=== PATIENT | female | born 1960 | race Caucasian/White ===

== ENCOUNTER 2016-12-01 12:00 | Outpatient (RCR) | payer OTHER | END 2016-12-03 | disposition home or self-care (01) | LOC: M PT 12:00 | PROVIDERS: ATTEND Neurological Surgery | DX: Z51.89 Encounter for other specified aftercare (principal); D33.1 Benign neoplasm of brain, infratentorial ==

== ENCOUNTER 2017-02-01 09:15 | Outpatient (RCR) | payer OTHER | END 2017-02-02 | LOC: M PT 09:15 | PROVIDERS: ATTEND Neurological Surgery | DX: D33.1 Benign neoplasm of brain, infratentorial (principal) ==

== ENCOUNTER 2017-02-06 10:01 | Outpatient (RCR) | payer OTHER | END 2017-03-05 | LOC: M PT 10:01 | DX: Z51.89 Encounter for other specified aftercare (principal); D33.1 Benign neoplasm of brain, infratentorial | CPT/HCPCS: 97110 ==

== ENCOUNTER → 2017-06-08 | Outpatient (REF) | payer OTHER ==
[2017-06-08 17:52] LABS: BASO % 0.5 % (0.0-1.0); EOS # 0.1 10^3/uL (0.0-0.50); EOS % 1.8 % (0.0-3.0); HEMATOCRIT 41.1 % (36.0-47.0); HEMOGLOBIN 13.4 g/dl (12.0-15.5); IMMATURE GRANULOCYTE % 0.2 % (0-3.0); LYMPH # 2.2 10^3/uL (1.5-4.5); LYMPH % 39.9 % (24.0-44.0); MEAN CORPUSCULAR HEMOGLOBIN 28.1 pg (27.0-33.0); MEAN CORPUSCULAR HGB CONC 32.6 g/dl (32.0-36.5); MEAN CORPUSCULAR VOLUME 86.2 fl (80.0-96.0); MONO # 0.4 10^3/uL (0.0-0.8); MONO % 7.9 % (0.0-5.0); NEUTROPHILS # 2.7 10^3/uL (1.8-7.7); NEUTROPHILS % 49.7 % (36.0-66.0); PLATELET COUNT, AUTOMATED 248 10^3/uL (150-450); RED BLOOD COUNT 4.77 10^6/uL (4.00-5.40); RED CELL DISTRIBUTION WIDTH 13.9 % (11.5-14.5); WHITE BLOOD COUNT 5.5 10^3/uL (4.0-10.0)
[2017-06-08 17:57] LABS: FOLATE 22.4 NG/ML; TOTAL 25(OH) VITAMIN D 31.3 NG/ML (30.0-100.0); VITAMIN B12 LEVEL 335 PG/ML
[2017-06-08 18:12] LABS: ALBUMIN 3.9 GM/DL (3.2-5.2); ALBUMIN/GLOBULIN RATIO 1.39 (1.00-1.93); ALKALINE PHOSPHATASE 81 U/L (45-117); ALT/SGPT 39 U/L (12-78); ANION GAP 5 MEQ/L (8-16); AST/SGOT 27 U/L (7-37); BILIRUBIN,TOTAL 0.8 MG/DL (0.2-1.0); BLOOD UREA NITROGEN 13 MG/DL (7-18); CALCIUM LEVEL 8.7 MG/DL (8.5-10.1); CARBON DIOXIDE LEVEL 30 MEQ/L (21-32); CHLORIDE LEVEL 109 MEQ/L (98-107); CREATININE FOR GFR 0.74 MG/DL (0.55-1.30); GLOMERULAR FILTRATION RATE > 60.0 (>51); GLUCOSE, FASTING 103 MG/DL (70-100); SODIUM LEVEL 144 MEQ/L (136-145); TOTAL PROTEIN 6.7 GM/DL (6.4-8.2)
== END ==
LOC: M LABNEURO 13:58
DX: R42 Dizziness and giddiness (principal); H53.2 Diplopia; R29.810 Facial weakness

== ENCOUNTER 2017-06-13 09:23 | Outpatient (RCR) | payer OTHER | END 2017-07-03 | LOC: M PT 09:23 → M ST 06-15 13:00 → M PT 06-20 08:48 → M OT 06-29 09:26 → M PT 09:23 → M ST 06-15 13:00 → M PT 06-20 08:48 | DX: Z51.89 Encounter for other specified aftercare (principal); R47.1 Dysarthria and anarthria; R26.81 Unsteadiness on feet; D33.1 Benign neoplasm of brain, infratentorial | CPT/HCPCS: 97110 ==

== ENCOUNTER 2017-07-06 09:06 | Outpatient (RCR) | payer OTHER | END 2017-08-03 | LOC: M PT 09:06 → M ST 07-18 09:07 → M PT 07-25 09:00 | DX: R47.1 Dysarthria and anarthria (principal); R26.81 Unsteadiness on feet | CPT/HCPCS: 97110 ==

== ENCOUNTER 2017-08-08 14:44 | Outpatient (RCR) | payer OTHER | END 2017-09-02 | LOC: M PT 14:44 | DX: Z51.89 Encounter for other specified aftercare (principal); Z98.890 Other specified postprocedural states ==